=== PATIENT | male | born 1935 | race Caucasian/White ===

== ENCOUNTER 2021-01-18 11:29 | Emergency (ER) | payer OTHER, MEDICARE ==
[~2021-01-18 11:29] MED LIST: ASPIRIN EC81 MG PO; CARAFATE S500 MG/TSP PO; CHOLESTEROL PILL; CIPRO500 MG PO; GABAPENTIN300 MG PO; MUCINEX 600MG600 MG PO; NEURONTIN400 MG PO; PLAVIX75 M1 PO; PRILOSEC20 MG PO; ZOFRAN4 MG PO
[2021-01-18 12:37] LABS: BASOPHIL 0.3 % (0-2); EOSINOPHIL 2.7 % (0-7); HCT 36.9 % (42.0-52.0); HGB 11.4 g/dl (13.2-18.0); LYMPHOCYTE 30.4 % (15-48); MCH 28.4 pg (25.0-31.0); MCHC 30.9 g/dL (32.0-36.0); MONOCYTE 7.4 % (0-12); MPV 8.7 fL (6.0-9.5); NEUTROPHIL 58.8 % (41-80); NRBC 0; PLT 455 K/uL (150-400); RBC 4.01 M/uL (4.70-6.00); RDW 14.4 % (11.5-14.0); WBC 15.8 K/uL (4.0-10.5)
[2021-01-18 12:39] LABS: BILIRUBIN NEGATIVE (NEGATIVE); BLOOD 3+ Ery/uL (NEGATIVE); CLARITY CLOUDY (CLEAR); COLOR RED (YELLOW); GLUCOSE (U) NORMAL (NORMAL); LEUKOCYTES 1+ Leu/uL (NEGATIVE); NITRITE NEGATIVE (NEGATIVE); PROTEIN 2+ mg/dL (NEGATIVE); UROBILINOGEN 0.2 mg/dL (0.2-1.0); pH 5.5 (5.0-9.0)
[2021-01-18 12:46] LABS: SQUAMOUS EPITHELIAL CELLS RARE; URINARY RBC TNTC
[2021-01-18 12:47] LABS: MUCOUS TRACE
[2021-01-18 12:56] LABS: BUN/CREAT RATIO (CALC) 11.7 RATIO; CREATININE 1.28 mg/dL (0.67-1.17); POTASSIUM 4.2 mmol/L (3.5-5.1)
[2021-01-18 13:35] LABS: LACTIC ACID 1.7 mmol/L (0.4-1.9)
[2021-01-18] MEDS ORDERED: CIPRO500 MG PO (14:57)
[2021-01-18] MEDS ORDERED: FLOMAX0.4 MG PO ×2 (14:57)
[2021-01-19] MEDS ORDERED: FLOMAX0.4 MG PO (12:36)
[2021-01-19] MEDS ORDERED: CIPRO500 MG PO (12:36)
== END 2021-01-18 15:53 | disposition home or self-care (01) ==
LOC: FER 11:29
PROVIDERS: Emergency Medicine; Nurse Practitioner Family
DX: N39.0 Urinary tract infection, site not specified (principal); R91.1 Solitary pulmonary nodule; N32.89 Other specified disorders of bladder; Z86.73 Personal history of transient ischemic attack (TIA), and cerebral infarction without residual deficits; Z88.0 Allergy status to penicillin
CPT/HCPCS: 36415; 80048; 81001; 83605; 85025; 87088; J7030